=== PATIENT | female | born 1980 | race Caucasian/White ===

== ENCOUNTER 2016-04-30 03:50 | Emergency (ER) | payer OTHER ==
--- NOTE | 2016-04-30 06:51 | ED CLINICAL REPORT ---
Clinical Report - Physicians/Mid Levels [facility] [address] [place] [address] 04/30/2016 3:53 Patient: TRACY ARGUELLES Time Seen: 04:00; initial patient contact. Arrived- By private vehicle. Historian- patient. HISTORY OF PRESENT ILLNESS Chief Complaint: Injury to the left great toe, left 3rd toe and left 4th toe. The injury happened about 3 days ago. Occurred at home. Patient did not fall. This was not an incised wound. (Ingrown nails from pedicure). Patient is experiencing moderate pain. No other injury. REVIEW OF SYSTEMS The patient complains of pain on weight bearing. She has had tingling. No suspected foreign body, skin laceration, chills, fever or nausea. No vomiting. All systems otherwise negative, except as recorded above. PAST HISTORY ? DM Dental Pain. Peripheral Nerve Entrapment Cervical Radiculopathy Lumbar Radiculopathy Paresthesia SURGERIES: Cholecystectomy. . Stomach surgery. -. SOCIAL HISTORY Current every day smoker. No alcohol use or drug use. ADDITIONAL NOTES The nursing notes have been reviewed with agreement regarding the chief complaint, PMH and patient medications and allergies. PHYSICAL EXAM Vital Signs: 04/30/2016 04:02 BP: 163/93. HR: 100. RR: 16. O2 saturation: 100%. Temp: 97.7 F. Pain level now: 11/29. Have been reviewed. Hypertensive. Heart rate normal. Respiratory rate normal. Temperature normal. Oxygen saturation normal. Appearance: Alert. Oriented X3. Appears to be in pain. Head: Head atraumatic. Eyes: Eyes normal inspection. ENT: Pharynx normal. CVS: Normal heart rate and rhythm. Heart sounds normal. Pulses: right dorsalis pedis 2+, left dorsalis pedis 2+, right posterior tibial 2+ and left posterior tibial 2+. Respiratory: No respiratory distress. Breath sounds normal. Extremities: Tip of left great toe: mild erythema. Left third toe: moderate tenderness and mild swelling. (dusky). Left fourth toe: severe tenderness and mild swelling. (dusky). Gait: Limping gait. Neuro, Vascular and Tendons: Vascular status intact. Sensation intact. Motor intact. LABS, X-RAYS, AND EKG Laboratory Tests: UA-Culture if indicated: (EMETERIO: 04/30/2016 05:12) ( [facility] 04/30/2016 05:32) Final results Test Result Flag Units (Reference) URINE COLOR YELLOW URINE APPEARANCE SLIGHTLY HAZY URINE GLUCOSE 3+ (NEGATIVE) URINE BILIRUBIN NEGATIVE (NEGATIVE) URINE KETONE TRACE (NEGATIVE) URINE SPECIFIC GRAVITY 1.025 (1.010-1.030) URINE PH 6.0 (5.0-8.0) URINE PROTEIN TRACE (NEGATIVE) URINE UROBILINOGEN 0.2 EU/dL (0.2-1.0) URINE NITRITE POSITIVE (NEGATIVE) URINE BLOOD NEGATIVE (NEGATIVE) URINE LEUK ESTERASE NEGATIVE (NEGATIVE) URINE RBC 0-1 rbc/hpf (0-1) URINE WBC 3-5 wbc/hpf (0-1) URINE EPITHELIAL CELLS RARE EPI/hpf (0-5) URINE BACTERIA MANY (4+) (NONE SEEN) URINE COMMENT CULTURE INDICATED URINE CULTURES ARE SET-UP BASED ON THE FOLLOWING CRITERIA:POSITIVE NITRITEPOSITIVE LEUKOCYTE ESTERASEGREATER THAN 10 WHITE BLOOD CELLSMODERATE (2+) OR GREATER BACTERIA Urine: (EMETERIO: 04/30/2016 05:12) ( [facility] 04/30/2016 05:33) Final results Test Result Flag Units (Reference) URINE NEGATIVE CBC w Diff: (EMETERIO: 04/30/2016 04:20) ( [facility] 04/30/2016 04:55) Final results Test Result Flag Units (Reference) WHITE BLOOD COUNT 15.9 H K/uL (4.5-11.5) RED BLOOD COUNT 4.76 M/uL (4.00-5.20) HEMOGLOBIN 12.6 gm/dL (12.0-16.0) HEMATOCRIT 38.5 % (36.0-46.0) MEAN CELL VOLUME 81 fL (80-100) MEAN CORPUSCULAR HGB 27 pg (26-34) MEAN CORPUSCULAR HGB CONC 33 g/dL (31-37) RED CELL DISTRIBUTION WIDTH 14.4 % (11.6-14.8) PLATELET COUNT 283 K/uL (150-400) NEUTROPHIL % 67.5 % (50-75) LYMPH % 25.2 % (25-40) MONO % 5.0 % (3-14) EOSINOPHIL % 1.5 % (0-4) BASOPHIL % 0.8 % (0-2) Urine Drug Screen: (EMETERIO: 04/30/2016 05:12) ( [facility] 04/30/2016 05:38) Final results Test Result Flag Units (Reference) AMPHETAMINE/METHAMPHETAMINE POSITIVE H (NEGATIVE) BARBITURATE NEGATIVE (NEGATIVE) BENZODIAZEPINE NEGATIVE (NEGATIVE) CANNABINOID POSITIVE H (NEGATIVE) COCAINE NEGATIVE (NEGATIVE) ECSTASY NEGATIVE (NEGATIVE) METHADONE NEGATIVE (NEGATIVE) OPIATE NEGATIVE (NEGATIVE) The urine drug screen is a qualitative screening test fordrug overdose and abuse. All screen results should beconsidered as presumptive.Drugs screened for are as follows:BenzodiazepinesCocaineAmphetamines/MetamphetaminesTHC (Tetrahydrocannabinol)OpiatesBarbituratesEcstasyMethadonePositive results are unconfirmed. For confirmation, notifythe lab for the specimen to be sent to the reference lab.All confirmations must be performed by a differentmethodology.The ingestion of natural herbal and plant productscontaining Ephedra/Ephedra metabolites can produce in urineone or more substances capable of cross reacting withamphetamine/methamphetamine immunoassays. These testsprovide a preliminary result only. A more specificalternative chemical method must be used to obtain aconfirmed analytical result. CMP: (EMETERIO: 04/30/2016 04:20) ( MsgRcvd 04/30/2016 05:07) Final results Test Result Flag Units (Reference) GLUCOSE 329 H mg/dL (70-110) BUN 14 mg/dL (7-18) CREATININE 0.8 mg/dL (0.6-1.3) Estimated GFR >60 mL/min Estimated GFR- >60 mL/min Note: Persistent reduction over 3 months in eGFR<60 mL/min/1.73 m2 defines CKD. Patients with eGFR values>=60 mL/min/1.73 m2 may also have CKD if evidence ofpersistent proteinuria. Additional information may be foundat www.kidney.org. SODIUM 136 mmol/L (136-145) POTASSIUM 3.9 mmol/L (3.5-5.1) CHLORIDE 98 mmol/L (98-107) CARBON DIOXIDE 25 mmol/L (21-32) CALCIUM 9.2 mg/dL (8.5-10.1) TOTAL PROTEIN 7.7 g/dL (6.4-8.2) ALBUMIN 3.7 g/dL (3.3-5.0) BILIRUBIN, TOTAL 0.3 mg/dL (0.0-1.0) ALKALINE PHOSPHATASE 111 U/L (46-116) AST (SGOT) 22 U/L (15-37) ALT (SGPT) 23 U/L (12-78) . PROGRESS AND PROCEDURES Course of Care: 05:35 04/30/16. Walk in to pt room to discuss lab results. Pt sitting quietly on bed, NAD, and as I start discussing plan she asks if she is being admitted, and I tell her there is no reason at this point for admission that we would be doing the same thing her as she would do at home, abx and pain control, she starts sobbing stating that she can't walk. CLINICAL IMPRESSION Cellulitis of the left great toe, left 3rd toe and left 4th toe. Type 2 diabetes with hyperglycemia. Acute urinary tract infection with cystitis. No pyelonephritis. INSTRUCTIONS Prescription Medications: Levofloxacin 750 mg: take 1 tab orally every day for 7 days. No refills. Clindamycin 300 mg: take 1 capsule orally every 6 hours for 7 days. No refill. Demerol 50 mg: take 1 - 2 tablets orally every 6 hours as needed for pain. Dispense fifteen (15). No refills. Substitution is permissible. Follow-up with: Delmar Salcedo DPM, Podiatry, , [address], [place], [address] Follow up in two days. Call for an appointment. (Electronically signed by Hayden Cadena Dr. 04/30/2016 6:29)
--- NOTE | 2016-04-30 06:51 | ED CLINICAL REPORT ---
Clinical Report - Physicians/Mid Levels [facility] [address] [place] [address] 04/30/2016 3:53 Patient: TRACY ARGUELLES Time Seen: 04:00; initial patient contact. Arrived- By private vehicle. Historian- patient. HISTORY OF PRESENT ILLNESS Chief Complaint: Injury to the left great toe, left 3rd toe and left 4th toe. The injury happened about 3 days ago. Occurred at home. Patient did not fall. This was not an incised wound. (Ingrown nails from pedicure). Patient is experiencing moderate pain. No other injury. REVIEW OF SYSTEMS The patient complains of pain on weight bearing. She has had tingling. No suspected foreign body, skin laceration, chills, fever or nausea. No vomiting. All systems otherwise negative, except as recorded above. PAST HISTORY ? DM Dental Pain. Peripheral Nerve Entrapment Cervical Radiculopathy Lumbar Radiculopathy Paresthesia SURGERIES: Cholecystectomy. . Stomach surgery. -. SOCIAL HISTORY Current every day smoker. No alcohol use or drug use. ADDITIONAL NOTES The nursing notes have been reviewed with agreement regarding the chief complaint, PMH and patient medications and allergies. PHYSICAL EXAM Vital Signs: 04/30/2016 04:02 BP: 163/93. HR: 100. RR: 16. O2 saturation: 100%. Temp: 97.7 F. Pain level now: 11/29. Have been reviewed. Hypertensive. Heart rate normal. Respiratory rate normal. Temperature normal. Oxygen saturation normal. Appearance: Alert. Oriented X3. Appears to be in pain. Head: Head atraumatic. Eyes: Eyes normal inspection. ENT: Pharynx normal. CVS: Normal heart rate and rhythm. Heart sounds normal. Pulses: right dorsalis pedis 2+, left dorsalis pedis 2+, right posterior tibial 2+ and left posterior tibial 2+. Respiratory: No respiratory distress. Breath sounds normal. Extremities: Tip of left great toe: mild erythema. Left third toe: moderate tenderness and mild swelling. (dusky). Left fourth toe: severe tenderness and mild swelling. (dusky). Gait: Limping gait. Neuro, Vascular and Tendons: Vascular status intact. Sensation intact. Motor intact. LABS, X-RAYS, AND EKG Laboratory Tests: UA-Culture if indicated: (EMETERIO: 04/30/2016 05:12) ( [facility] 04/30/2016 05:32) Final results Test Result Flag Units (Reference) URINE COLOR YELLOW URINE APPEARANCE SLIGHTLY HAZY URINE GLUCOSE 3+ (NEGATIVE) URINE BILIRUBIN NEGATIVE (NEGATIVE) URINE KETONE TRACE (NEGATIVE) URINE SPECIFIC GRAVITY 1.025 (1.010-1.030) URINE PH 6.0 (5.0-8.0) URINE PROTEIN TRACE (NEGATIVE) URINE UROBILINOGEN 0.2 EU/dL (0.2-1.0) URINE NITRITE POSITIVE (NEGATIVE) URINE BLOOD NEGATIVE (NEGATIVE) URINE LEUK ESTERASE NEGATIVE (NEGATIVE) URINE RBC 0-1 rbc/hpf (0-1) URINE WBC 3-5 wbc/hpf (0-1) URINE EPITHELIAL CELLS RARE EPI/hpf (0-5) URINE BACTERIA MANY (4+) (NONE SEEN) URINE COMMENT CULTURE INDICATED URINE CULTURES ARE SET-UP BASED ON THE FOLLOWING CRITERIA:POSITIVE NITRITEPOSITIVE LEUKOCYTE ESTERASEGREATER THAN 10 WHITE BLOOD CELLSMODERATE (2+) OR GREATER BACTERIA Urine: (EMETERIO: 04/30/2016 05:12) ( [facility] 04/30/2016 05:33) Final results Test Result Flag Units (Reference) URINE NEGATIVE CBC w Diff: (EMETERIO: 04/30/2016 04:20) ( [facility] 04/[facility] 04:55) Final results Test Result Flag Units (Reference) WHITE BLOOD COUNT 15.9 H K/uL (4.5-11.5) RED BLOOD COUNT 4.76 M/uL (4.00-5.20) HEMOGLOBIN 12.6 gm/dL (12.0-16.0) HEMATOCRIT 38.5 % (36.0-46.0) MEAN CELL VOLUME 81 fL (80-100) MEAN CORPUSCULAR HGB 27 pg (26-34) MEAN CORPUSCULAR HGB CONC 33 g/dL (31-37) RED CELL DISTRIBUTION WIDTH 14.4 % (11.6-14.8) PLATELET COUNT 283 K/uL (150-400) NEUTROPHIL % 67.5 % (50-75) LYMPH % 25.2 % (25-40) MONO % 5.0 % (3-14) EOSINOPHIL % 1.5 % (0-4) BASOPHIL % 0.8 % (0-2) Urine Drug Screen: (EMETERIO: 04/30/2016 05:12) ( [facility] 04/30/2016 05:38) Final results Test Result Flag Units (Reference) AMPHETAMINE/METHAMPHETAMINE POSITIVE H (NEGATIVE) BARBITURATE NEGATIVE (NEGATIVE) BENZODIAZEPINE NEGATIVE (NEGATIVE) CANNABINOID POSITIVE H (NEGATIVE) COCAINE NEGATIVE (NEGATIVE) ECSTASY NEGATIVE (NEGATIVE) METHADONE NEGATIVE (NEGATIVE) OPIATE NEGATIVE (NEGATIVE) The urine drug screen is a qualitative screening test fordrug overdose and abuse. All screen results should beconsidered as presumptive.Drugs screened for are as follows:BenzodiazepinesCocaineAmphetamines/MetamphetaminesTHC (Tetrahydrocannabinol)OpiatesBarbituratesEcstasyMethadonePositive results are unconfirmed. For confirmation, notifythe lab for the specimen to be sent to the reference lab.All confirmations must be performed by a differentmethodology.The ingestion of natural herbal and plant productscontaining Ephedra/Ephedra metabolites can produce in urineone or more substances capable of cross reacting withamphetamine/methamphetamine immunoassays. These testsprovide a preliminary result only. A more specificalternative chemical method must be used to obtain aconfirmed analytical result. CMP: (EMETERIO: 04/30/2016 04:20) ( MsgRcvd 04/30/2016 05:07) Final results Test Result Flag Units (Reference) GLUCOSE 329 H mg/dL (70-110) BUN 14 mg/dL (7-18) CREATININE 0.8 mg/dL (0.6-1.3) Estimated GFR >60 mL/min Estimated GFR- >60 mL/min Note: Persistent reduction over 3 months in eGFR<60 mL/min/1.73 m2 defines CKD. Patients with eGFR values>=60 mL/min/1.73 m2 may also have CKD if evidence ofpersistent proteinuria. Additional information may be foundat www.kidney.org. SODIUM 136 mmol/L (136-145) POTASSIUM 3.9 mmol/L (3.5-5.1) CHLORIDE 98 mmol/L (98-107) CARBON DIOXIDE 25 mmol/L (21-32) CALCIUM 9.2 mg/dL (8.5-10.1) TOTAL PROTEIN 7.7 g/dL (6.4-8.2) ALBUMIN 3.7 g/dL (3.3-5.0) BILIRUBIN, TOTAL 0.3 mg/dL (0.0-1.0) ALKALINE PHOSPHATASE 111 U/L (46-116) AST (SGOT) 22 U/L (15-37) ALT (SGPT) 23 U/L (12-78) . PROGRESS AND PROCEDURES Course of Care: 05:35 04/30/16. Walk in to pt room to discuss lab results. Pt sitting quietly on bed, NAD, and as I start discussing plan she asks if she is being admitted, and I tell her there is no reason at this point for admission that we would be doing the same thing her as she would do at home, abx and pain control, she starts sobbing stating that she can't walk. CLINICAL IMPRESSION Cellulitis of the left great toe, left 3rd toe and left 4th toe. Type 2 diabetes with hyperglycemia. Acute urinary tract infection with cystitis. No pyelonephritis. INSTRUCTIONS Prescription Medications: Levofloxacin 750 mg: take 1 tab orally every day for 7 days. No refills. Clindamycin 300 mg: take 1 capsule orally every 6 hours for 7 days. No refill. Demerol 50 mg: take 1 - 2 tablets orally every 6 hours as needed for pain. Dispense fifteen (15). No refills. Substitution is permissible. Follow-up with: Delmar Salcedo DPM, Podiatry, , [address], [address], [place], [address] Follow up in two days. Call for an appointment. (Electronically signed by Hayden Cadena Dr. 04/30/2016 6:29)
--- NOTE | 2016-04-30 06:51 | ED NURSING NOTES ---
Clinical Report - Nurses [facility] [address] [place] [address] 04/30/2016 3:53 [id number] Triage time 04:03. Acuity: LEVEL 4. Chief Complaint: INJURY TO FOOT. Alert. --04:06 Elin Hollis. 04:02 04/30/16. BP: 163/93. HR: 100. RR: 16. O2 saturation: 100%. Temp: 97.7 F. Pain level now: 11/29. --04:06 Elin Hollis. Weight: 70.3 kg. Height/Length: 67 inches. BMI: 24.3. --04:05 Bunny R.N. Medications None. --04:04 Elin Hollis. Allergies Codeine. --04:04 Elin Hollis. History Arrived by private vehicle. Historian: patient. Accompanied by friend. ( pt complains of ingrown toenails on her left foot, pt has three toes that are blackish in color). This occurred at an unknown time. She has had numbness and trouble walking. Treatment GROUP WORKER: None. PAST MEDICAL HX: Diabetes mellitus. Tetanus status: up-to-date. Immunizations: up-to-date. Denies current . SOCIAL HX: Current every day smoker. No alcohol use or drug use. No infectious disease exposure. SELF HARM ASSESSMENT: A self harm assessment was performed. The patient answered "no" to the question "Have you recently felt down, depressed, or hopeless?", "Have you noticed less interest or pleasure in doing things?", "Do you have thoughts of harming or killing yourself?", "Are you here because you tried to hurt yourself?", "Have you ever tried to hurt yourself before today?", "Have you recently had thoughts about harming or killing others?" and "Do you have any dangerous items in your possession?". FALL RISK ASSESSMENT: Fall risk assessment completed. No fall risk identified. NUTRITIONAL RISK ASSESSMENT: The nutritional risk assessment revealed no deficiencies. FUNCTIONAL ASSESSMENT: Functional assessment: no impairments noted. LEARNING NEEDS ASSESSMENT: The learning needs assessment revealed no barriers. SKIN INTEGRITY ASSESSMENT: Skin integrity risk assessment completed. No skin integrity risk identified. --04:06 Harish Hollis Interventions ID band on patient. To treatment room. --04:06 Harish Hollis PHYSICAL ASSESSMENT Ambulatory to room. GENERAL / NEURO / PSYCH: Oriented X 4. Alert. EXTREMITIES: Pain with weight bearing. Left big toe: tenderness. Left third toe: tenderness (blackish in color). Left fourth toe: tenderness (blackish in color). ( left side). SKIN: Skin intact. Skin is warm and dry. --04:08 Harish Hollis NURSING PROGRESS NOTES ( attempted IV x2, unable to get IV but was able to collect blood and send to lab.). --04:29 Harish Hollis 04:31 04/30/2016 Site #1 started via IV hand with an 20g angiocath. Saline lock flushed (iv STARTED BY Yfn). --04:31 Harish Hollis 04:39 04/30/2016 Zofran (Ondansetron HCl) IVP 4 mg given over 3 minute(s) via site #1. Allergies verified and confirmed 5 rights. IV patency established. IV site checked: no pain, redness, or swelling. IV flushed thoroughly pre- and post-medication administration. --04:39 Harish Hollis 04:40 04/30/2016 Demerol (Meperidine HCl) IVP 25 mg given over 3 minute(s) via site #1. Allergies verified and confirmed 5 rights. IV patency established. IV site checked: no pain, redness, or swelling. IV flushed thoroughly pre- and post-medication administration. IVP given by RN. --04:40 Harish Hollis ( explained to pt that we need a UA, pt states that she is unable to give a UA at this time). --04:43 Harish Hollis ( pt still unable to give a UA, water given to the pt to drink). --05:07 Harish Hollis Reassessment after medication administered. GENERAL / NEURO / PSYCH: The patient reports pain that is located in the left foot, great toe, third toe and fourth toe that is severe. --05:08 Harish Hollis 05:49 04/30/2016 Demerol (Meperidine HCl) IVP 50 mg given. via site #1. Allergies verified and confirmed 5 rights. IV patency established. IV site checked: no pain, redness, or swelling. IV flushed thoroughly pre- and post-medication administration. IVP given by RN. --05:49 Harish Hollis 05:50 04/30/2016 Levaquin (Levofloxacin) PO 500 mg given. Allergies verified and confirmed 5 rights. --05:50 Harish Hollis 05:51 04/30/2016 Started 600 mg of Clindamycin IVPB in bag #1 50 mL; at 100 mL/hr over 30 minute(s) via site #1 via IV pump. Allergies verified and confirmed 5 rights. IV patency established. IV site checked: no pain, redness, or swelling. IV flushed thoroughly pre- and post-medication administration. --05:51 Harish Hollis 05:52 04/30/2016 Insulin Reg Subcutaneous 8 unit given. Given in the left upper arm. Allergies verified and confirmed 5 rights. --05:52 Harish Hollis 06:13 04/30/2016 Clindamycin IVPB Discontinued: bag #1 completed. Total amount infused: 100 mL. IV patency established. IV site checked: no pain, redness, or swelling. IV flushed thoroughly. --06:13 Harish Hollis Two patient identifiers checked. Call light placed in reach. Side rails up x 1. Bed placed in lowest position. Brakes of bed on. --06:48 Harish Hollis 06:48 04/30/16. BP: 146/90. HR: 84. RR: 16. O2 saturation: 100%. Temp: deferred. Pain level now: 06/29. --06:48 Harish Hollis DISPOSITION / DISCHARGE 06:59 04/30/2016 Site #1 removed upon discharge. Catheter intact. Bandaid applied. --06:59 Harish Hollis Condition at departure: improved. No learning barriers present. Discharge instructions provided and reviewed with the patient. Reviewed warnings. Reviewed medication(s) side effects, precautions and dosing information. Prescription(s) given to the patient. Treatments reviewed. Reviewed referrals. Reviewed need to stop smoking. Patient verbalized understanding. Written instructions provided in Telugu. No diet instructions, activity restrictions or note given. The patient was discharged by the physician. She was discharged home and accompanied by solid waste collector. She left the Emergency Department ambulatory and via private vehicle. [employer] Hand driving. FALL RISK ASSESSMENT: Fall risk assessment completed. No fall risk identified. --07:00 Harish Hollis 06:58 04/30/16. BP: deferred. HR: deferred. RR: deferred. O2 saturation: 100%. Temp: deferred. Pain level now 5/10. --07:00 Harish Hollis Departure time: 07:00. --07:00 Harish Hollis Locked/Released at 04/30/2016 7:01 by Harish Hollis
--- NOTE | 2016-04-30 06:51 | ED ORDER SUMMARY ---
..... Patient: TRACY ARGUELLES OrderSheet [facility] VisitID: [id number] [address] [place] [address] 36y, F Registration Date/Time: 04/30/2016 ORDER SHEET Weight: 70.3 kg Allergies: Codeine GENERAL ORDERS: CBC w Diff Urgent (04:04/30/2016 Mary Lou James) (Ack 4:12 SRedmond) (4:30 TBowen R.N.) CMP Urgent (04:04/30/2016 Mary Lou James) (Ack 4:12 SRedmond) (4:30 TBowen R.N.) UA-Culture if indicated Urgent (04:04/30/2016 Mary Lou James) (Ack 4:12 SRedmond) (5:14 TBowen R.N.) Urine Urgent (04:04/30/2016 Mary Lou James) (Ack 4:12 SRedmond) (5:14 TBowen R.N.) Urine Drug Screen Urgent (04:04/30/2016 Mary Lou James) (Ack 4:12 SRedmond) (5:14 TBowen R.N.) MEDICATION ORDERS: Insulin Reg Subcut 8 units (HIGH ALERT MEDICATION, NOW) (05:29 04/30/2016 Mary Lou James) (5:52 TBowen R.N.) Levaquin PO 500 mg (NOW) (05:31 04/30/2016 Mary Lou James) (5:50 TBowen R.N.) IV FLUIDS: Zofran IV 4 mg (NOW) (04:04/30/2016 Mary Lou James) (4:39 TBowen R.N.) Demerol IV 25 mg (HIGH ALERT MEDICATION, NOW) (04:04/30/2016 Mary Lou James) (4:40 TBowen R.N.) IV Saline Lock (04:04/30/2016 Mary Lou James) (4:32 TBowen R.N.) Demerol IV 50 mg (HIGH ALERT MEDICATION, NOW) (05:28 04/30/2016 Mary Lou James) (5:49 Cecil R.N.) Clindamycin IV 600 mg/50mL (NOW) (05:31 04/30/2016 Mary Lou James) (5:51 Cecil Schultz.Kimberlee) ORDER SHEET NOTES: [Electronically signed by Hayden Cadena Dr. (06:29 04/30/2016)] [Electronically signed by Cyndy Ponce R.N. (07:04/30/2016)] [Electronically locked/signed by Cyndy Ponce R.N. (07:04/30/2016)]
--- NOTE | 2016-04-30 06:51 | ED ORDER SUMMARY ---
..... Patient: TRACY ARGUELLES OrderSheet [facility] VisitID: [id number] [address] [place] [address] 36y, F Registration Date/Time: 04/30/2016 ORDER SHEET Weight: 70.3 kg Allergies: Codeine GENERAL ORDERS: CBC w Diff Urgent (04:04/30/2016 Mary Lou James) (Ack 4:12 SRedmond) (4:30 TBowen R.N.) CMP Urgent (04:04/30/2016 Mary Lou James) (Ack 4:12 SRedmond) (4:30 TBowen R.N.) UA-Culture if indicated Urgent (04:04/30/2016 Mary Lou James) (Ack 4:12 SRedmond) (5:14 TBowen R.N.) Urine Urgent (04:04/30/2016 Mary Lou James) (Ack 4:12 SRedmond) (5:14 TBowen R.N.) Urine Drug Screen Urgent (04:04/30/2016 Mary Lou James) (Ack 4:12 SRedmond) (5:14 TBowen R.N.) MEDICATION ORDERS: Insulin Reg Subcut 8 units (HIGH ALERT MEDICATION, NOW) (05:29 04/30/2016 Mary Lou James) (5:52 TBowen R.N.) Levaquin PO 500 mg (NOW) (05:31 04/30/2016 Mary Lou James) (5:50 TBowen R.N.) IV FLUIDS: Zofran IV 4 mg (NOW) (04:04/30/2016 Mary Lou James) (4:39 TBowen R.N.) Demerol IV 25 mg (HIGH ALERT MEDICATION, NOW) (04:04/30/2016 Mary Lou James) (4:40 TBowen R.N.) IV Saline Lock (04:04/30/2016 Mary Lou James) (4:32 TBowen R.N.) Demerol IV 50 mg (HIGH ALERT MEDICATION, NOW) (05:28 04/30/2016 Mary Lou James) (5:49 Cecil R.N.) Clindamycin IV 600 mg/50mL (NOW) (05:31 04/30/2016 Mary Lou James) (5:51 Cecil Schultz.Kimberlee) ORDER SHEET NOTES: [Electronically signed by Hayden Cadena Dr. (06:29 04/30/2016)] [Electronically signed by Cyndy Ponce R.N. (07:04/30/2016)] [Electronically locked/signed by Cyndy Ponce R.N. (07:04/30/2016)]
--- NOTE | 2016-04-30 06:51 | ED NURSING NOTES ---
Clinical Report - Nurses [facility] [address] [place] [address] 04/30/2016 3:53 [id number] TRI[facility] Triage time 04:03. Acuity: LEVEL 4. Chief Complaint: INJURY TO FOOT. Alert. --04:06 Elin Hollis. 04:02 04/30/16. BP: 163/93. HR: 100. RR: 16. O2 saturation: 100%. Temp: 97.7 F. Pain level now: 11/29. --04:06 Elin Hollis. Weight: 70.3 kg. Height/Length: 67 inches. BMI: 24.3. --04:05 Bunny R.N. Medications None. --04:04 Elin Hollis. Allergies Codeine. --04:04 Elin Hollis. History Arrived by private vehicle. Historian: patient. Accompanied by friend. ( pt complains of ingrown toenails on her left foot, pt has three toes that are blackish in color). This occurred at an unknown time. She has had numbness and trouble walking. 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 PAST MEDICAL HX: Diabetes mellitus. Tetanus status: up-to-date. Immunizations: up-to-date. Denies current . SOCIAL HX: Current every day smoker. No alcohol use or drug use. No infectious disease exposure. SELF HARM ASSESSMENT: A self harm assessment was performed. The patient answered "no" to the question "Have you recently felt down, depressed, or hopeless?", "Have you noticed less interest or pleasure in doing things?", "Do you have thoughts of harming or killing yourself?", "Are you here because you tried to hurt yourself?", "Have you ever tried to hurt yourself before today?", "Have you recently had thoughts about harming or killing others?" and "Do you have any dangerous items in your possession?". FALL RISK ASSESSMENT: Fall risk assessment completed. No fall risk identified. NUTRITIONAL RISK ASSESSMENT: The nutritional risk assessment revealed no deficiencies. FUNCTIONAL ASSESSMENT: Functional assessment: no impairments noted. LEARNING NEEDS ASSESSMENT: The learning needs assessment revealed no barriers. SKIN INTEGRITY ASSESSMENT: Skin integrity risk assessment completed. No skin integrity risk identified. --04:06 Harish Hollis Interventions ID band on patient. To treatment room. --04:06 Harish Hollis PHYSICAL ASSESSMENT Ambulatory to room. GENERAL / NEURO / PSYCH: Oriented X 4. Alert. EXTREMITIES: Pain with weight bearing. Left big toe: tenderness. Left third toe: tenderness (blackish in color). Left fourth toe: tenderness (blackish in color). ( left side). SKIN: Skin intact. Skin is warm and dry. --04:08 Harish oHllis NURSING PROGRESS NOTES ( attempted IV x2, unable to get IV but was able to collect blood and send to lab.). --04:29 Harish Hollis 04:31 04/30/2016 Site #1 started via IV hand with an 20g angiocath. Saline lock flushed (iv STARTED BY Yfn). --04:31 Harish Hollis 04:39 04/30/2016 Zofran (Ondansetron HCl) IVP 4 mg given over 3 minute(s) via site #1. Allergies verified and confirmed 5 rights. IV patency established. IV site checked: no pain, redness, or swelling. IV flushed thoroughly pre- and post-medication administration. --04:39 Harish Hollis 04:40 04/30/2016 Demerol (Meperidine HCl) IVP 25 mg given over 3 minute(s) via site #1. Allergies verified and confirmed 5 rights. IV patency established. IV site checked: no pain, redness, or swelling. IV flushed thoroughly pre- and post-medication administration. IVP given by RN. --04:40 Harish Hollis ( explained to pt that we need a UA, pt states that she is unable to give a UA at this time). --04:43 Harish Hollis ( pt still unable to give a UA, water given to the pt to drink). --05:07 Harish Hollis Reassessment after medication administered. GENERAL / NEURO / PSYCH: The patient reports pain that is located in the left foot, great toe, third toe and fourth toe that is severe. --05:08 Harish Hollis 05:49 04/30/2016 Demerol (Meperidine HCl) IVP 50 mg given. via site #1. Allergies verified and confirmed 5 rights. IV patency established. IV site checked: no pain, redness, or swelling. IV flushed thoroughly pre- and post-medication administration. IVP given by RN. --05:49 Harish Hollis 05:50 04/30/2016 Levaquin (Levofloxacin) PO 500 mg given. Allergies verified and confirmed 5 rights. --05:50 Harish Hollis 05:51 04/30/2016 Started 600 mg of Clindamycin IVPB in bag #1 50 mL; at 100 mL/hr over 30 minute(s) via site #1 via IV pump. Allergies verified and confirmed 5 rights. IV patency established. IV site checked: no pain, redness, or swelling. IV flushed thoroughly pre- and post-medication administration. --05:51 Harish Hollis 05:52 04/30/2016 Insulin Reg Subcutaneous 8 unit given. Given in the left upper arm. Allergies verified and confirmed 5 rights. --05:52 Harish Hollis 06:13 04/30/2016 Clindamycin IVPB Discontinued: bag #1 completed. Total amount infused: 100 mL. IV patency established. IV site checked: no pain, redness, or swelling. IV flushed thoroughly. --06:13 Harish Hollis Two patient identifiers checked. Call light placed in reach. Side rails up x 1. Bed placed in lowest position. Brakes of bed on. --06:48 Harish Hollis 06:48 04/30/16. BP: 146/90. HR: 84. RR: 16. O2 saturation: 100%. Temp: deferred. Pain level now: 06/29. --06:48 Harish Hollis DISPOSITION / DISCHARGE 06:59 04/30/2016 Site #1 removed upon discharge. Catheter intact. Bandaid applied. --06:59 Harish Hollis Condition at departure: improved. No learning barriers present. Discharge instructions provided and reviewed with the patient. Reviewed warnings. Reviewed medication(s) side effects, precautions and dosing information. Prescription(s) given to the patient. Treatments reviewed. Reviewed referrals. Reviewed need to stop smoking. Patient verbalized understanding. Written instructions provided in Kiswahili. No diet instructions, activity restrictions or note given. The patient was discharged by the physician. She was discharged home and accompanied by rn oncology research. She left the Emergency Department ambulatory and via private vehicle. Tax Examiner driving. FALL RISK ASSESSMENT: Fall risk assessment completed. No fall risk identified. --07:00 Harish Hollis 06:58 04/30/16. BP: deferred. HR: deferred. RR: deferred. O2 saturation: 100%. Temp: deferred. Pain level now 5/10. --07:00 Harish Hollis Departure time: 07:00. --07:00 Harish Hollis Locked/Released at 04/30/2016 7:01 by Harish Hollis
--- NOTE | 2016-04-30 07:01 | ED MED RECONCILIATION SUMMARY ---
Patient: CedGWENDOLYNYAYATRACY GREY Medication Reconciliation Report [facility] VisitID: [id number] [address] [place] [address] 36y, F Registration Date/Time: 04/30/2016 Weight: 70.3 kg Height/Length: 67 in. BMI: 24.3 ALLERGIES: Codeine The patient's Home Medications are listed below: NONE. The source(s) of the original Home Medication information: Not obtained. The following Medications were given to the patient in the Emergency Department: Zofran [IVP] IVP 4 mg, administered: 04/30/2016 4:39:00 AM Demerol [IVP] IVP 25 mg, administered: 04/30/2016 4:40:00 AM Demerol [IVP] IVP 50 mg, administered: 04/30/2016 5:49:00 AM Levaquin [PO] PO 500 mg, administered: 04/30/2016 5:50:00 AM Clindamycin [IVPB] IVPB bolus 0, then 600 mg 100 mL/hr, administered: 04/30/2016 5:51:00 AM Insulin Reg [Subcutaneous] Subcutaneous 8 unit, administered: 04/30/2016 5:52:00 AM The following Medications were prescribed to the patient: Levofloxacin 750 mg: take 1 tab orally every day for 7 days. No refills. -- Hayden Cadena Dr. Clindamycin 300 mg: take 1 capsule orally every 6 hours for 7 days. No refill. -- Hayden Cadena Dr. Demerol 50 mg: take 1 - 2 tablets orally every 6 hours as needed for pain. Dispense fifteen (15). No refills. Substitution is permissible. -- Hayden Cadena Dr.
--- NOTE | 2016-04-30 07:01 | ED MAR SUMMARY ---
..... Medication Administration Record [facility] [address], [place] [address] Patient: TRACY ARGUELLES Visit ID: [id number] 36y, F Weight: 70.3 kg Height/Length: 67 in BMI: 24.3 ALLERGIES: Codeine Given 04:39 04/30/2016 Harish Hollis Medication Administered: ZOFRAN [IVP] (ONDANSETRON HCL), Dose: 4 mg IVP over 3 minute(s), Site: #1 hand. Medication Ordered: Zofran IV 4 mg (NOW). Given 04:40 04/30/2016 Harish Hollis Medication Administered: DEMEROL [IVP] (MEPERIDINE HCL), Dose: 25 mg IVP over 3 minute(s), Site: #1 hand. Medication Ordered: Demerol IV 25 mg (HIGH ALERT MEDICATION, NOW). Given 05:49 04/30/2016 Harish Hollis Medication Administered: DEMEROL [IVP] (MEPERIDINE HCL), Dose: 50 mg IVP, Site: #1 hand. Medication Ordered: Demerol IV 50 mg (HIGH ALERT MEDICATION, NOW). Given 05:50 04/30/2016 Harish Hollis Medication Administered: LEVAQUIN [PO] (LEVOFLOXACIN), Dose: 500 mg PO. Medication Ordered: Levaquin PO 500 mg (NOW). Start 05:51 04/30/2016 Harish Hollis, Stop 06:13 04/30/2016 Harish Hollis Medication Administered: CLINDAMYCIN [IVPB], Dose: 600 mg IVPB over 30 minute(s), Rate: 100 mL/hr, Dispensed: 50 mL bag, Site: #1 hand. Medication Ordered: Clindamycin IV 600 mg/50mL (NOW). Given 05:52 04/30/2016 Elin Hollis. Medication Administered: INSULIN REG [SUBCUTANEOUS], Dose: 8 unit Subcutaneous. Medication Ordered: Insulin Reg Subcut 8 units (HIGH ALERT MEDICATION, NOW).
--- NOTE | 2016-04-30 07:01 | ED DISCHARGE INSTRUCTIONS ---
Patient: TRACY ARGUELLES General Instructions [facility] VisitID: [id number] [address] [place] [address] 36y, F Registration Date/Time: 04/30/2016 Cellulitis of the left great toe, left 3rd toe and left 4th toe. Type 2 diabetes with hyperglycemia. Acute urinary tract infection with cystitis. No pyelonephritis. INSTRUCTIONS Prescription Medications: Levofloxacin 750 mg: take 1 tab orally every day for 7 days. No refills. Clindamycin 300 mg: take 1 capsule orally every 6 hours for 7 days. No refill. Demerol 50 mg: take 1 - 2 tablets orally every 6 hours as needed for pain. Dispense fifteen (15). No refills. Substitution is permissible. Follow-up with: Delmar Salcedo DPM, Podiatry, , [address], [place], [address] Follow up in two days. Call for an appointment. ADDITIONAL INFORMATION Cellulitis You have an infection of the skin known as cellulitis. This usually starts with a scrape, cut, insect bite, blister or other opening in the skin which becomes infected. This is a serious condition. It must be watched closely to be sure the infection is not spreading. With antibiotic treatment, the size of the red area will gradually shrink in size until the skin returns to normal. This will take 7-10 days. The red area should never increase in size once the antibiotic medicine has been started. Occasionally, an infection will be resistant to one antibiotic and another one will have to be used. Home Care: 1) Limit the use of the affected part, since excess movement can cause the infection to spread. 2) If the infection is on your leg, walk as little as possible during the first few days of the treatment. Keep your leg elevated while sitting. This will reduce swelling. 3) Take all of the antibiotic medicine exactly as directed until it is gone. Be careful not to miss any doses, especially during the first seven days. Follow Up with your doctor or this facility as directed. Check the infected area daily for the warning signs listed below. Get Prompt Medical Attention if any of the following occur: -- Spreading area of redness -- Increasing swelling or pain -- Appearance of pus or drainage -- Fever over 100.4 F (38.0 C) oral, or over 101.4 F (38.6 C) rectal, after two days on antibiotics Diabetes with High Blood Sugar You have been treated for high blood sugar (hyperglycemia). This may be becauseof an infection or other illness;eating too many sweets or starches ; not taking enough insulin. Home care High blood sugar may cause symptoms that you can learn to recognize, such as these: If you feel like your blood sugar may be too high, measure it using a blood or urine test. If it is above your usual range, use the "sliding scale"rRegular insulin dose your doctor gave you to correct this. If no "sliding scale" orders were given, contact your doctor for further advice. If your blood sugar is over 300, and you can't reach your doctor, go to the hospital emergency room. Monitor and write down your blood sugars - and insulin dose, if you take insulin - atleast twice a day. Do this before breakfast and before dinner. Do this for the next 3 to 5 days. Follow-up care Follow up with your health care provderduring the next week to review your blood sugar records. You will find out if you need to adjust your dose of insulin or other medicine for blood sugar. When to seek medical care Get prompt medical attention if either of these occur: High blood sugar.Symptoms are frequent urination, feeling dizzy, thirst, headache, nausea or vomiting, abdominal pain, and drowsiness or loss of consciousness. Low blood sugar. Symptoms are fatigue, headache, shakes, excess sweating, hunger, anxiety, reduced vision, drowsiness, weakness, confusion or loss of consciousness, and seizure. Bladder Infection,Female (Adult) A bladder infection ("cystitis" or "UTI") usually causes a constant urge to urinate and a burning when passing urine. Urine may be cloudy, smelly or dark. There may be pain in the lower abdomen. A bladder infection occurs when bacteria from the vaginal area enter the bladder opening (urethra). This can occur from sexual intercourse, wearing tight clothing, dehydration and other factors. Home Care: Drink lots of fluids (at least 6-8 glasses a day, unless you must restrict fluids for other medical reasons). This will force the medicine into your urinary system and flush the bacteria out of your body. Avoid sexual intercourse until your symptoms are gone. Avoid caffeine, alcohol and spicy foods. These can irritate the bladder. A bladder infection is treated with antibiotics. You may also be given Pyridium (generic = phenazopyridine) to reduce the burning sensation. This medicine will cause your urine to become a bright orange color. The orange urine may stain clothing. You may wear a pad or panty-liner to protect clothing. Preventing Future Infections: Always wipe from front to back after a bowel movement. Keep the genital area clean and dry. Drink plenty of fluids each day to avoid dehydration. Both sexual partners should wash before intercourse. Urinate right after intercourse to flush out the bladder. Wear cotton underwear and cotton-lined panty hose; avoid tight-fitting pants. If you are on control pills and are having frequent bladder infections, discuss with your doctor. Follow Up: Return to this facility or see your doctor if ALL symptoms are not gone after three days of treatment. Get Prompt Medical Attention if any of the following occur: Fever of 100.4F (38C) or higher, or as directed by your healthcare provider No improvement by the third day of treatment Increasing back or abdominal pain Repeated vomiting; unable to keep medicine down Weakness, dizziness or fainting Vaginal discharge Pain, redness or swelling in the labia (outer vaginal area) Levofloxacin Oral tablet What is this medicine? LEVOFLOXACIN (jigna tai) is a quinolone antibiotic. It is used to treat certain kinds of bacterial infections. It will not work for colds, flu, or other viral infections. How should I use this medicine? Take this medicine by mouth with a full glass of water. Follow the directions on the prescription label. This medicine can be taken with or without food. Take your medicine at regular intervals. Do not take your medicine more often than directed. Do not skip doses or stop your medicine early even if you feel better. Do not stop taking except on your doctor's advice. A special MedGuide will be given to you by the pharmacist with each prescription and refill. Be sure to read this information carefully each time. Talk to your electric motor tester assembler regarding the use of this medicine in children. While this drug may be prescribed for children as young as 6 months for selected conditions, precautions do apply. What side effects may I notice from receiving this medicine? Side effects that you should report to your doctor or health day care provider as soon as possible: -allergic reactions like skin rash or hives, swelling of the face, lips, or tongue -changes in vision -confusion, nightmares or hallucinations -difficulty breathing -irregular heartbeat, chest pain -joint, muscle or tendon pain -pain or difficulty passing urine -persistent headache with or without blurred vision -redness, blistering, peeling or loosening of the skin, including inside the mouth -seizures -unusual pain, numbness, tingling, or weakness -vaginal irritation, discharge Side effects that usually do not require medical attention (report to your doctor or health day care provider if they continue or are bothersome): -diarrhea -dry mouth -headache -stomach upset, nausea -trouble sleeping What may interact with this medicine? Do not take this medicine with any of the following medications: - arsenic trioxide - chloroquine - droperidol - medicines for irregular heart rhythm like amiodarone, disopyramide, dofetilide, flecainide, quinidine, procainamide, sotalol - some medicines for depression or mental problems like phenothiazines, pimozide, and ziprasidone This medicine may also interact with the following medications: - amoxapine -antacids - cisapride - dairy products - didanosine (ddI) buffered tablets or powder - haloperidol - multivitamins -NSAIDS, medicines for pain and inflammation, like ibuprofen or naproxen - retinoid products like tretinoin or isotretinoin - risperidone - some other antibiotics like clarithromycin or erythromycin - sucralfate - theophylline - warfarin What if I miss a dose? If you miss a dose, take it as soon as you remember. If it is almost time for your next dose, take only that dose. Do not take double or extra doses. Where should I keep my medicine? Keep out of the reach of children. Store at room temperature between 15 and 30 degrees C (59 and 86 degrees F). Keep in a tightly closed container. Throw away any unused medicine after the expiration date. What should I tell my health care provider before I take this medicine? They need to know if you have any of these conditions: cerebral disease irregular heartbeat kidney disease seizure disorder an unusual or allergic reaction to levofloxacin, other antibiotics or medicines, foods, dyes, or preservatives or trying to get breast-feeding What should I watch for while using this medicine? Tell your doctor or health day care provider if your symptoms do not improve or if they get worse. Drink several glasses of water a day and cut down on drinks that contain caffeine. You must not get dehydrated while taking this medicine. You may get drowsy or dizzy. Do not drive, use machinery, or do anything that needs mental alertness until you know how this medicine affects you. Do not sit or stand up quickly, especially if you are an older patient. This reduces the risk of dizzy or fainting spells. This medicine can make you more sensitive to the sun. Keep out of the sun. If you cannot avoid being in the sun, wear protective clothing and use a sunscreen. Do not use sun lamps or tanning beds/booths. Contact your doctor if you get a sunburn. If you are a diabetic monitor your blood glucose carefully. If you get an unusual reading stop taking this medicine and call your doctor right away. Do not treat diarrhea with [id number]-[id number] products. Contact your doctor if you have diarrhea that lasts more than 2 days or if the diarrhea is severe and watery. Avoid antacids, calcium, iron, and zinc products for 2 hours before and 2 hours after taking a dose of this medicine. Clindamycin Hydrochloride Oral capsule What is this medicine? CLINDAMYCIN (KLIN da ERMELINDA sin) is a lincosamide antibiotic. It is used to treat certain kinds of bacterial infections. It will not work for colds, flu, or other viral infections. How should I use this medicine? Take this medicine by mouth with a full glass of water. Follow the directions on the prescription label. You can take this medicine with food or on an empty stomach. If the medicine upsets your stomach, take it with food. Take your medicine at regular intervals. Do not take your medicine more often than directed. Take all of your medicine as directed even if you think your are better. Do not skip doses or stop your medicine early. Talk to your electric motor tester assembler regarding the use of this medicine in children. Special care may be needed. What side effects may I notice from receiving this medicine? Side effects that you should report to your doctor or health day care provider as soon as possible: allergic reactions like skin rash, itching or hives, swelling of the face, lips, or tongue dark urine pain on swallowing redness, blistering, peeling or loosening of the skin, including inside the mouth unusual bleeding or bruising unusually weak or tired yellowing of eyes or skin Side effects that usually do not require medical attention (report to your doctor or health day care provider if they continue or are bothersome): diarrhea itching in the rectal or genital area joint pain nausea, vomiting stomach pain What may interact with this medicine? chloramphenicol erythromycin kaolin products What if I miss a dose? If you miss a dose, take it as soon as you can. If it is almost time for your next dose, take only that dose. Do not take double or extra doses. Where should I keep my medicine? Keep out of the reach of children. Store at room temperature between 20 and 25 degrees C (68 and 77 degrees F). Throw away any unused medicine after the expiration date. What should I tell my health care provider before I take this medicine? They need to know if you have any of these conditions: kidney disease liver disease stomach problems like colitis an unusual or allergic reaction to clindamycin, lincomycin, or other medicines, foods, dyes like tartrazine or preservatives or trying to get breast-feeding What should I watch for while using this medicine? Tell your doctor or healthcare professional if your symptoms do not start to get better or if they get worse. Do not treat diarrhea with over the counter products. Contact your doctor if you have diarrhea that lasts more than 2 days or if it is severe and watery. Drug Abuse: Prescribed Narcotics& Sedatives Prolonged or overuse of drugs prescribed for pain or sedation may lead to addictionor dependence. Physical dependence leads to drug withdrawal symptoms if you stop taking the drug. With psychological dependence you feel a strong craving for the drug. You may be unable to stop using the drug even though you want to stop. These problems can occur even when the medication is taken at the prescribed dose. Drug addiction places you, your family, and your job at risk. Arrest, conviction and half-way sentencing are possible. There is increased danger of accidental injuries to yourself or others while you are under the influence of the drug. from an unintentional overdose of the drug is one of the greatest risks you face. Get Care Admit you have a drug problem to yourself and your family and close friends. Tell your prescribing doctors about this problem so they can help you by adjusting the type and amount of medications that are prescribed in the future. It is best to receive all prescriptions for addictive medications from a single physician who can monitor what is being prescribed. Ask your doctor for a referral for professional help. This could be individual psychotherapy or counseling or a drug treatment program (outpatient or residential). Join a self-help group for drug abuse. Avoid friends who abuse drugs themselves or tempt you to continue abusing drugs. Do not combine pain medicines and sedatives together or with alcohol. Doing so can cause oversedation, coma, and stop your breathing. Follow Up with your doctor or as advised by our staff. Contact one of the resources below for help. National [place] on Alcoholism and Drug Dependencewww.ncadd.org Narcotics Anonymouswww.na.org National Alcohol and Substance Abuse Information Center (for referral to treatment programs) 769.479.3716 www.addictioncareoptions.com Get Prompt Medical Attention if any of the following occur: Excess drowsiness Slow breathing (under 8 breaths per minute) Agitation, anxiety, unable to sleep Unintended weight loss Seizure Chest pain or shortness of breath Fever of 100.4F (38C) or higher, or as directed by your healthcare provider Cough with colored sputum You have been given the following additional information: Cellulitis Diabetic Hyperglycemia Bladder Infection, Female (Adult) Levofloxacin Oral tablet Clindamycin Hydrochloride Oral capsule Drug Abuse: Prescribed Narcotics And Sedatives (Electronically signed by Hayden Cadena Dr. 04/30/2016 6:29)
--- NOTE | 2016-04-30 07:01 | ED MED RECONCILIATION SUMMARY ---
Patient: CedGWENDOLYNYAYATRACY GREY Medication Reconciliation Report [facility] VisitID: [id number] [address] [place] [address] 36y, F Registration Date/Time: 04/30/2016 Weight: 70.3 kg Height/Length: 67 in. BMI: 24.3 ALLERGIES: Codeine The patient's Home Medications are listed below: NONE. The source(s) of the original Home Medication information: Not obtained. The following Medications were given to the patient in the Emergency Department: Zofran [IVP] IVP 4 mg, administered: 04/30/2016 4:39:00 AM Demerol [IVP] IVP 25 mg, administered: 04/30/2016 4:40:00 AM Demerol [IVP] IVP 50 mg, administered: 04/30/2016 5:49:00 AM Levaquin [PO] PO 500 mg, administered: 04/30/2016 5:50:00 AM Clindamycin [IVPB] IVPB bolus 0, then 600 mg 100 mL/hr, administered: 04/30/2016 5:51:00 AM Insulin Reg [Subcutaneous] Subcutaneous 8 unit, administered: 04/30/2016 5:52:00 AM The following Medications were prescribed to the patient: Levofloxacin 750 mg: take 1 tab orally every day for 7 days. No refills. -- Hayden Cadena Dr. Clindamycin 300 mg: take 1 capsule orally every 6 hours for 7 days. No refill. -- Hayden Cadena Dr. Demerol 50 mg: take 1 - 2 tablets orally every 6 hours as needed for pain. Dispense fifteen (15). No refills. Substitution is permissible. -- Hayden Cadena Dr.
--- NOTE | 2016-04-30 07:01 | ED MAR SUMMARY ---
..... Medication Administration Record [facility] [address], [place] [address] Patient: TRACY ARGUELLES Visit ID: [id number] 36y, F Weight: 70.3 kg Height/Length: 67 in BMI: 24.3 ALLERGIES: Codeine Given 04:39 04/30/2016 Harish Hollis Medication Administered: ZOFRAN [IVP] (ONDANSETRON HCL), Dose: 4 mg IVP over 3 minute(s), Site: #1 hand. Medication Ordered: Zofran IV 4 mg (NOW). Given 04:40 04/30/2016 Harish Hollis Medication Administered: DEMEROL [IVP] (MEPERIDINE HCL), Dose: 25 mg IVP over 3 minute(s), Site: #1 hand. Medication Ordered: Demerol IV 25 mg (HIGH ALERT MEDICATION, NOW). Given 05:49 04/30/2016 Harish Hollis Medication Administered: DEMEROL [IVP] (MEPERIDINE HCL), Dose: 50 mg IVP, Site: #1 hand. Medication Ordered: Demerol IV 50 mg (HIGH ALERT MEDICATION, NOW). Given 05:50 04/30/2016 Harish Hollis Medication Administered: LEVAQUIN [PO] (LEVOFLOXACIN), Dose: 500 mg PO. Medication Ordered: Levaquin PO 500 mg (NOW). Start 05:51 04/30/2016 Harish Hollis, Stop 06:13 04/30/2016 Harish Hollis Medication Administered: CLINDAMYCIN [IVPB], Dose: 600 mg IVPB over 30 minute(s), Rate: 100 mL/hr, Dispensed: 50 mL bag, Site: #1 hand. Medication Ordered: Clindamycin IV 600 mg/50mL (NOW). Given 05:52 04/30/2016 Elin Hollis. Medication Administered: INSULIN REG [SUBCUTANEOUS], Dose: 8 unit Subcutaneous. Medication Ordered: Insulin Reg Subcut 8 units (HIGH ALERT MEDICATION, NOW).
== END 2016-04-30 06:55 | disposition home or self-care (01) ==
LOC: ED SRH 03:50
DX: E11.628 Type 2 diabetes mellitus with other skin complications (principal); L03.032 Cellulitis of left toe; E11.65 Type 2 diabetes mellitus with hyperglycemia; N30.00 Acute cystitis without hematuria; F17.200 Nicotine dependence, unspecified, uncomplicated
CPT/HCPCS: 90004; 90100; 90148; 90469; 92760; 92761; 92762; 92763; 92764; 92765; 92766; 92767; 93070; 95059

== ENCOUNTER 2016-07-13 11:14 | Emergency (ER) | payer OTHER ==
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
--- NOTE | 2016-07-20 21:09 | ED MAR SUMMARY ---
..... Medication Administration Record [facility] [address] [place], [place] [id number] Patient: RAZIAVEGA, TRACY Keira Visit ID: [id number] 36y, F Weight: 71.6 kg Height/Length: 67 in BMI: 24.7 ALLERGIES: Codeine
--- NOTE | 2016-07-20 21:09 | ED MED RECONCILIATION SUMMARY ---
Patient: TRACY ARGUELLES Medication Reconciliation Report [facility] VisitID: [id number] [address] [place] [address] 36y, F Registration Date/Time: 07/13/2016 Weight: 71.6 kg Height/Length: 67 in. BMI: 24.7 ALLERGIES: Codeine The patient's Home Medications are listed below: NONE. The source(s) of the original Home Medication information: patient The following Medications were given to the patient in the Emergency Department: None. The following Medications were prescribed to the patient: Ultram 50 mg: take 1-2 orally every 6 hours as needed for pain. Dispense fifteen (15). No refills. Substitution is permissible. -- Jose Luis Watson MD
--- NOTE | 2016-07-20 21:09 | ED MED RECONCILIATION SUMMARY ---
Patient: TRACY ARGUELLES Medication Reconciliation Report [facility] VisitID: [id number] [address] [place] [address] 36y, F Registration Date/Time: 07/13/2016 Weight: 71.6 kg Height/Length: 67 in. BMI: 24.7 ALLERGIES: Codeine The patient's Home Medications are listed below: NONE. The source(s) of the original Home Medication information: patient The following Medications were given to the patient in the Emergency Department: None. The following Medications were prescribed to the patient: Ultram 50 mg: take 1-2 orally every 6 hours as needed for pain. Dispense fifteen (15). No refills. Substitution is permissible. -- Jose Luis Watson MD
--- NOTE | 2016-07-20 21:09 | ED MAR SUMMARY ---
..... Medication Administration Record [facility] [address] [place] [id number] Patient: RAZIAVEGA, TRACY Keira Visit ID: [id number] 36y, F Weight: 71.6 kg Height/Length: 67 in BMI: 24.7 ALLERGIES: Codeine
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
== END 2016-07-13 13:03 | disposition home or self-care (01) ==
LOC: ED SRH 11:14
DX: S00.83XA Contusion of other part of head, initial encounter (principal); S20.219A Contusion of unspecified front wall of thorax, initial encounter; Y04.0XXA Assault by unarmed brawl or fight, initial encounter; Y92.009 Unspecified place in unspecified non-institutional (private) residence as the place of occurrence of the external cause; F17.200 Nicotine dependence, unspecified, uncomplicated